=== PATIENT | male | born 1975 | race Caucasian/White ===

== ENCOUNTER 2016-08-11 20:29 | Emergency (ER) | payer OTHER ==
[~2016-08-11] VITALS: Ht 190.5 cm; Wt 104.3 kg
[2016-08-11] MEDS ORDERED: RT-ALBUTEROL/IPRATROPIUM 3 ML (DUONEB) VIAL ONE (20:37)
[2016-08-11] MEDS ORDERED: DEXAMETHASONE PF 10 MG/ML (DECADRON) VIAL ONE (20:37)
[2016-08-11] MEDS ORDERED: BENZONATATE 100 MG (TESSALON) CAPSULE PO SCH (20:45)
[2016-08-11] MEDS ORDERED: methylPREDNISolone 125 MG (Solu-MEDROL) VIAL IVP ONE (20:45)
[2016-08-11] MEDS ORDERED: RT-ALBUTEROL/IPRATROPIUM 3 ML (DUONEB) VIAL INH ONE (20:45)
[2016-08-11] MEDS ORDERED: PROMETHAZINE/DM SYRUP (PHENERGDAN DM) 5 ML UDC PO ONE (20:45)
[2016-08-11] MEDS ORDERED: DEXAMETHASONE 4 MG/ML SDV (DECADRON) IH ONE (20:45)
[2016-08-11 21:13] LABS: BASOPHILS % (AUTO) 0 % (0-10); EOSINOPHILS # (AUTO) 0.1 10^3/uL (0.0-0.3); EOSINOPHILS % (AUTO) 2 % (0-10); LYMPHOCYTES # (AUTO) 3.3 X 10^3 (1.0-4.0); LYMPHOCYTES % (AUTO) 42 % (12-44); MEAN CORPUSCULAR HEMOGLOBIN 31 PG (25-34); MEAN CORPUSCULAR HGB CONC 34 G/DL (32-36); MEAN CORPUSCULAR VOLUME 90 FL (80-99); MEAN PLATELET VOLUME 10.3 FL (7.4-10.4); MONOCYTES % (AUTO) 13 % (0-12); NEUTROPHILS # (AUTO) 3.4 X 10^3 (1.8-7.8); NEUTROPHILS % (AUTO) 43 % (42-75); PLATELET COUNT 218 10^3/uL (130-400); RED BLOOD COUNT 4.38 10^6/uL (4.35-5.85); RED CELL DISTRIBUTION WIDTH 13.1 % (10.0-14.5); WHITE BLOOD COUNT 7.9 10^3/uL (4.3-11.0)
[2016-08-11 21:27] LABS: PROTHROMBIN TIME PATIENT 12.7 SEC (12.2-14.7)
[2016-08-11 21:40] LABS: ALANINE AMINOTRANSFERASE 18 U/L (0-55); ALBUMIN 4.1 G/DL (3.2-4.5); ANION GAP 9 MMOL/L (5-14); ASPARTATE AMINO TRANSFERASE 18 U/L (5-34); BILIRUBIN,TOTAL 0.4 MG/DL (0.1-1.0); BLOOD UREA NITROGEN 14 MG/DL (7-18); BUN/CREATININE RATIO 16; CALCIUM 8.5 MG/DL (8.5-10.1); CARBON DIOXIDE 22 MMOL/L (21-32); CHLORIDE 112 MMOL/L (98-107); CREATINE KINASE 133 U/L (30-200); CREATININE SERUM 0.89 MG/DL (0.60-1.30); GFR ESTIMATED > 60; GLUCOSE 113 MG/DL (70-105); MAGNESIUM 2.2 MG/DL (1.8-2.4); POTASSIUM 3.9 MMOL/L (3.6-5.0); SODIUM 143 MMOL/L (135-145); TOTAL PROTEIN 6.7 G/DL (6.4-8.2)
--- NOTE | 2016-08-11 21:44 | Diagnostic Imaging Report ---
INDICATION: Lower respiratory infection PA and lateral chest Heart size and pulmonary vascularity are normal. Lungs are clear. There are no effusions or pneumothoraces. IMPRESSION: No acute abnormalities in the chest Dictated by: Dictated on workstation # [id number]
[2016-08-11 21:47] LABS: ALCOHOL < 10 MG/DL (<10)
[2016-08-11 21:50] LABS: TROPONIN I < 0.30 NG/ML (<0.30)
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
[2016-08-11] MEDS ORDERED: RX-ALBUTEROL INHALER (VENTOLIN HFA) 18 GM IH STA (22:05)
[2016-08-11] MEDS ORDERED: RX-ALBUTEROL INHALER (PROAIR) 8 GM IH ONE (22:07)
[2016-08-11] MEDS ORDERED: BENZ-13 PO (22:15)
[2016-08-11] MEDS ORDERED: D-ME118S7 PO (22:15)
[2016-08-11] MEDS ORDERED: DOXY100C42 PO (22:15)
[2016-08-11] MEDS ORDERED: METH4TAB PO (22:15)
[2016-08-11] MEDS ORDERED: cefTRIAXone INJECTION 1,000 MG in NS (IVPB) 50 ML IV ONE (22:15)
[2016-08-11 22:45] VITALS: BP 131/80
--- OUTSIDE RECORDS SUMMARY | 2016-09-12 18:22 | XMS REPORT ---
Author Author FANY GOLDEN [employer] Address Unknown Phone Unavailable Care Team Providers Care Fireworks Inspector Name Role Phone FANY GOLDEN CP Unavailable Allergies, Adverse Reactions, Alerts Substance Reaction Event Type N.K.D.A. Info Not Available Non Drug Allergy Problems Problem Type Condition Code Onset Dates Condition Status Assessment Encounter for dental examination Z01.20 Active Medications Medication Code System Code Instructions Start Date End Date Status Dosage [facility] [address]-99 5-325 MG Orally every 6 hrs Apr 25, 2015 Apr 30, 2015 1 tablet as needed Procedures Procedure Coding System Code Date INTRAORL-PERIAPICAL 1 FILM 09896 CPT-4 D0220 Apr 25, 2015 INTRAORL-PERIAPICAL EA ADD FILM CPT-4 D0230 Apr 25, 2015 LTD ORAL EVALUATION - PROBLEM FOCUS CPT-4 D0140 Apr 25, 2015 BITEWING - SINGLE FILM CPT-4 D0270 Apr 25, 2015 Vital Signs Date/Time: Apr 25, 2015 Blood Pressure Diastolic 99 mmHg Blood Pressure Systolic 142 mmHg Results No Known Results Summary Purpose eClinicalWorks Submission
--- OUTSIDE RECORDS SUMMARY | 2016-09-12 18:22 | XMS REPORT ---
Author Author FANY GOLDEN [facility] e[employer] Address Unknown Phone Unavailable Care Team Providers Care Executive Sales Assistant Name Role Phone FANY GOLDEN CP Unavailable Allergies, Adverse Reactions, Alerts Substance Reaction Event Type N.K.D.A. Info Not Available Non Drug Allergy Problems Problem Type Condition Code Onset Dates Condition Status Assessment Dental caries K02.9 Active Medications No Known Medications Procedures Procedure Coding System Code Date EXTRAC ERUPTED TOOTH/EXPOSED ROOT CPT-4 D7140 Feb 12, 2016 Vital Signs Date/Time: Feb 12, 2016 Blood Pressure Diastolic 93 mmHg Blood Pressure Systolic 142 mmHg Results No Known Results Summary Purpose eClinicalWorks Submission
== END 2016-08-11 22:45 | disposition home or self-care (01) ==
LOC: ER 20:31
DX: J20.9 Acute bronchitis, unspecified (principal); F15.10 Other stimulant abuse, uncomplicated; F12.10 Cannabis abuse, uncomplicated; F17.210 Nicotine dependence, cigarettes, uncomplicated
CPT/HCPCS: 36415; 71020; 80053; 80306; 80320; 82550; 82553; 83735; 83880; 84484; 85025; 85610; 85730; 87040; 87804; 93005; 94640; 94664; 96365; 96375